=== PATIENT | male | born 1975 | race Caucasian/White ===

== ENCOUNTER 2016-08-27 13:50 | Emergency (ER) | payer OTHER ==
[2016-08-27] MEDS ORDERED: LORazepam 2 MG/ML INJ IM ONE (14:05)
--- NOTE | 2016-08-27 14:08 | EDPHY ---
H & P Stated Complaint: Mouth dry,feels like throat swelling,very anxious Time Seen by Provider: 08/27/16 13:59 HPI/ROS: CHIEF COMPLAINT: Anxiety HISTORY OF PRESENT ILLNESS: The patient is a 41-year-old man with history of anxiety and panic attacks who comes to the emergency department complaining of anxiety, hyperventilation and lightheadedness. The symptoms began about an hour ago. He came since concerned because his throat was very dry. He states that he did not drink very much water yesterday. He is obese. He states that he has been tested for diabetes and that is been negative. He denies having any history of cardiac disease. He denies any chest pain or shortness of breath today. He denies palpitations. He denies having any sore throat or painful swallowing. REVIEW OF SYSTEMS: Constitutional: denies: chills, fever, recent illness, recent injury EENTM: denies: blurred vision, double vision, nose congestion Respiratory: denies: cough, shortness of breath Cardiac: denies: chest pain, irregular heart rate, lightheadedness, palpitations Gastrointestinal/Abdominal: denies: abdominal pain, diarrhea, nausea, vomiting, blood streaked stools Genitourinary: denies: dysuria, frequency, hematuria, pain Musculoskeletal: denies: joint pain, muscle pain Skin: denies: lesions, rash, jaundice, bruising Neurological: denies: headache, numbness, paresthesia, tingling, dizziness, weakness Hematologic/Lymphatic: denies: blood clots, easy bleeding, easy bruising Immunologic/allergic: denies: HIV/AIDS, transplant EXAM: GENERAL: anxious , well-nourished and in no acute distress. HEAD: Atraumatic, normocephalic. EYES: Pupils equal round and reactive to light, extraocular movements intact, sclera anicteric, conjunctiva are normal. ENT: TMs normal, nares patent, oropharynx clear without exudates. Moist mucous membranes. NECK: Normal range of motion, supple without lymphadenopathy or JVD. LUNGS: Breath sounds clear to auscultation bilaterally and equal. No wheezes rales or rhonchi. HEART: Slight tachycardia, Regular rate and rhythm without murmurs, rubs or gallops. ABDOMEN: Soft, nontender, normoactive bowel sounds. No guarding, no rebound. No masses appreciated. BACK: No CVA tenderness, no spinal tenderness, step-offs or deformities EXTREMITIES: Normal range of motion, no pitting or edema. No clubbing or cyanosis. NEUROLOGICAL: Cranial nerves II through XII grossly intact. Normal speech, normal gait. 5/5 strength, normal movement in all extremities, normal sensation PSYCH: Normal mood, normal affect. SKIN: Warm, dry, normal turgor, no visible rashes or lesions. Source: Patient Exam Limitations: No limitations - Personal History Current Tetanus Diphtheria and Acellular Pertussis (TDAP): Yes - Medical/Surgical History Hx Asthma: No Hx Chronic Respiratory Disease: No Hx Diabetes: No Hx Cardiac Disease: No Hx Renal Disease: No Hx Cirrhosis: No Hx Alcoholism: No Other PMH: neg by hx - Family History Significant Family History: No pertinent family hx - Social History Smoking Status: Never smoked Alcohol Use: Sober Drug Use: None Constitutional: Initial Vital Signs Temperature (C) 36.6 C 08/27/16 13:50 Heart Rate 118 H 08/27/16 13:50 Respiratory Rate 24 H 08/27/16 13:50 O2 Sat (%) 95 08/27/16 13:50 O2 Delivery Mode Room Air Allergies/Adverse Reactions: No Known Allergies Allergy (Unverified 08/27/16 13:54) Home Medications: Medication Instructions Recorded NK [No Known Home Meds] 08/27/16 Medical Decision Making - Diagnostics EKG Interpretation: An EKG obtained and was read and documented in trace view. Please see trace view for full reading and report. Sinus tachycardia, nonspecific interventricular conduction delay, no previous for comparison ED Course/Re-evaluation: 4:30 p.m. Patient is feeling completely better. He thinks this is primarily anxiety. He is reassured by the EKG and electrolytes. His family is here to take him home. They declined any further workup or testing. I encouraged him to continue hydration. Differential Diagnosis: Partial list of the Differential diagnosis considered include but were not limited to; dehydration, anxiety and although unlikely based on the history and physical exam, I also considered acute coronary disease, DKA, electrolyte abnormality. I discussed these differential diagnoses and the plan with the patient as well as the usual and expected course. The patient understands that the diagnosis is provisional and that in medicine we are not always correct and that further workup is often warranted. Usual and customary warnings were given. All of the patient's questions were answered. The patient was instructed to return to the emergency department should the symptoms at all worsen or return, otherwise to followup with the physician as we discussed. - Data Points Laboratory Results: Laboratory Results 08/27/16 15:32 08/27/16 15:32 08/27/16 08/27/16 15:32 15:32 WBC 10.03 10^3/uL H 10^3/uL (3.80-9.50) RBC 5.23 10^6/uL 10^6/uL (4.40-6.38) Hgb 15.3 g/dL g/dL (13.7-17.5) Hct 44.8 % % (40.0-51.0) MCV 85.7 fL fL (81.5-99.8) MCH 29.3 pg pg (27.9-34.1) MCHC 34.2 g/dL g/dL (32.4-36.7) RDW 14.0 % % (11.5-15.2) Plt Count 226 10^3/uL 10^3/uL (150-400) MPV 11.2 fL fL (8.7-11.7) Neut % (Auto) 77.7 % H % (39.3-74.2) Lymph % (Auto) 12.5 % L % (15.0-45.0) Kerr % (Auto) 7.4 % % (4.5-13.0) Eos % (Auto) 1.3 % % (0.6-7.6) Baso % (Auto) 0.5 % % (0.3-1.7) Nucleat RBC Rel Count 0.0 % % (0.0-0.2) Absolute Neuts (auto) 7.80 10^3/uL H 10^3/uL (1.70-6.50) Absolute Lymphs (auto) 1.25 10^3/uL 10^3/uL (1.00-3.00) Absolute Monos (auto) 0.74 10^3/uL 10^3/uL (0.30-0.80) Absolute Eos (auto) 0.13 10^3/uL 10^3/uL (0.03-0.40) Absolute Basos (auto) 0.05 10^3/uL 10^3/uL (0.02-0.10) Absolute Nucleated RBC 0.00 10^3/uL 10^3/uL (0-0.01) Immature Gran % 0.6 % % (0.0-1.1) Immature Gran # 0.06 10^3/uL 10^3/uL (0.00-0.10) Sodium 141 mEq/L mEq/L (134-144) Potassium 3.7 mEq/L mEq/L (3.5-5.2) Chloride 105 mEq/L mEq/L (97-110) Carbon Dioxide 23 mEq/l mEq/l (22-31) Anion Gap 13 mEq/L mEq/L (8-16) BUN 10 mg/dL mg/dL (7-23) Creatinine 0.7 mg/dL mg/dL (0.7-1.3) Estimated GFR > 60 Glucose 161 mg/dL H mg/dL (70-100) Calcium 9.3 mg/dL mg/dL (8.5-10.4) Medications Given: Discontinued Medications Lorazepam (Ativan Injection) 1 mg IM EDNOW ONE Stop: 08/27/16 14:06 Last Admin: 08/27/16 14:30 Dose: 1 mg Departure - Departure Disposition: Home, Routine, Self-Care Clinical Impression: Anxiety, Dehydration Condition: Fair Instructions: Dehydration (ED), Anxiety (ED) Referrals: NONE *PRIMARY CARE P,. [Primary Care Provider] - As per Instructions Print Language: Syrian
--- NOTE | 2016-08-27 14:18 | CPEKG ---
Heart Rate: 117 RR Interval: 513 P-R Interval: 184 QRSD Interval: 112 QT Interval: 308 QTC Interval: 430 P [place]: 52 QRS [place]: -24 T Wave [place]: 54 EKG Severity - ABNORMAL ECG - EKG Impression: SINUS TACHYCARDIA EKG Impression: NONSPECIFIC INTRAVENTRICULAR CONDUCTION DELAY Electronically Signed By: Ti Minor 27-Aug-2016 14:25:56
[2016-08-27 15:44] LABS: % IMMATURE GRANULYOCYTES 0.6 % (0.0-1.1); ABSOLUTE IMMATURE GRANULOCYTES 0.06 10^3/uL (0.00-0.10); ADD DIFF? NO; ADD MORPH? NO; ADD SCAN? NO; ATYPICAL LYMPHOCYTE FLAG 10 (0-99); FRAGMENT RBC FLAG 0 (0-99); HEMATOCRIT 44.8 % (40.0-51.0); HEMOGLOBIN 15.3 g/dL (13.7-17.5); LEFT SHIFT FLG 0 (0-99); LIPEMIA HEMOLYSIS FLAG 90 (0-99); MEAN CELL HEMOGLOBIN 29.3 pg (27.9-34.1); MEAN CELL HEMOGLOBIN CONCENTR. 34.2 g/dL (32.4-36.7); MEAN CELL VOLUME 85.7 fL (81.5-99.8); MEAN PLATELET VOLUME 11.2 fL (8.7-11.7); PLATELET CLUMPS FLAG 10 (0-99); PLATELET COUNT 226 10^3/uL (150-400); RED BLOOD CELL COUNT 5.23 10^6/uL (4.40-6.38)
[2016-08-27 16:05] LABS: ANION GAP 13 mEq/L (8-16); CALCIUM 9.3 mg/dL (8.5-10.4); CARBON DIOXIDE 23 mEq/l (22-31); CHLORIDE 105 mEq/L (97-110); CREATININE 0.7 mg/dL (0.7-1.3); GLOMERULAR FILTRATION RATE > 60; GLUCOSE 161 mg/dL (70-100); POTASSIUM 3.7 mEq/L (3.5-5.2); SODIUM 141 mEq/L (134-144)
[2016-08-27 16:49] VITALS: BP 134/89; PULSE 97; RESP 16; TEMP 98.8; O2SAT 91
== END 2016-08-27 17:17 | disposition home or self-care (01) ==
DX: F41.9 Anxiety disorder, unspecified (principal); E86.0 Dehydration
CPT/HCPCS: J2060